=== PATIENT | male | born 1995 | race American Indian/Alaskan Native ===

== ENCOUNTER 2017-05-26 00:32 | Emergency (ER) | payer OTHER ==
[2017-05-26 00:42] VITALS: BP 144/91
[2017-05-26] MEDS ORDERED: TORADOL IM ONE (01:57)
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
== END 2017-05-26 03:30 | disposition home or self-care (01) ==
LOC: ED 00:32
DX: S39.012A Strain of muscle, fascia and tendon of lower back, initial encounter (principal); V49.9XXA Car occupant (driver) (passenger) injured in unspecified traffic accident, initial encounter; Y92.488 Other paved roadways as the place of occurrence of the external cause; Y99.8 Other external cause status; Y93.89 Activity, other specified
CPT/HCPCS: 72072; 72100; 99283; J1885